=== PATIENT | female | born 1975 | race Caucasian/White ===

== ENCOUNTER 2021-06-02 02:50 | Emergency (ER) | payer BC, OTHER ==
[2021-06-02] MEDS ORDERED: SODIUM CHLORIDE 0.9% 1,000 ML IV STA (03:00)
--- NOTE | 2021-06-02 03:02 | ED ---
Abdominal Pain HPI - General Chief Complaint: Abdominal Pain Stated Complaint: Abdominal pain Time Seen by Provider: 06/02/21 02:56 Source: patient, RN notes reviewed, old records reviewed Mode of arrival: ambulatory Limitations: no limitations - History of Present Illness Initial Comments: This is a 46-year-old female to the emergency from a 2 day. Patient presents today for evaluation regards to abdominal pain. Severe abdominal pain causing nausea and nausea vomiting. Patient has history of ovarian cysts history of left lower quadrant abdominal pain history of left ovary removal. No fevers. Patient is had some constipation is taking laxatives and symptoms have worsened MD Complaint: abdominal pain -: days(s) Location: LLQ, suprapubic Radiation: L flank Migration to: suprapubic Severity: moderate Severity scale (1-10): 7 Quality: sharp Consistency: constant Improves With: nothing Worsens With: nothing Associated Symptoms: nausea, vomiting Treatments Prior to Arrival: other (none) - Related Data Home Medications Medication Instructions Recorded Confirmed Loratadine [Claritin] 10 mg PO DAILY 02/07/15 02/07/15 Previous Rx's Medication Instructions Recorded Penicillin V Potassium [Pen Vee K] 500 mg PO BID #20 tab 02/07/15 Allergies Allergy/AdvReac Type Severity Reaction Status Date / Time No Known Allergies Allergy Verified 06/02/21 02:56 Review of Systems ROS Statement: Those systems with pertinent positive or pertinent negative responses have been documented in the HPI. ROS Other: All systems not noted in ROS Statement are negative. Past Medical History Past Medical History: No Reported History Additional Past Medical History / Comment(s): ovarian cysts History of Any Multi-Drug Resistant Organisms: None Reported Past Surgical History: Adenoidectomy, Tonsillectomy Additional Past Surgical History / Comment(s): ovarian cyst removal Past Psychological History: No Psychological Hx Reported Smoking Status: Current every day smoker Past Alcohol Use History: None Reported Past Drug Use History: None Reported General Exam General appearance: alert, in no apparent distress Head exam: Present: atraumatic, normocephalic, normal inspection Eye exam: Present: normal appearance, PERRL, EOMI. Absent: scleral icterus, conjunctival injection, periorbital swelling ENT exam: Present: normal exam, mucous membranes moist Neck exam: Present: normal inspection. Absent: tenderness, meningismus, lymphadenopathy Respiratory exam: Present: normal lung sounds bilaterally. Absent: respiratory distress, wheezes, rales, rhonchi, stridor Cardiovascular Exam: Present: regular rate, normal rhythm, normal heart sounds. Absent: systolic murmur, diastolic murmur, rubs, gallop, clicks GI/Abdominal exam: Present: distended, tenderness, guarding, normal bowel sounds. Absent: rebound, rigid Extremities exam: Present: normal inspection, full ROM, normal capillary refill. Absent: tenderness, pedal edema, joint swelling, calf tenderness Back exam: Present: normal inspection Neurological exam: Present: alert, oriented X3, CN II-XII intact Psychiatric exam: Present: normal affect, normal mood Skin exam: Present: warm, dry, intact, normal color. Absent: rash Course Vital Signs 06/02/21 06/02/21 02:53 04:50 Temperature 97.7 F Pulse Rate 76 57 L Respiratory 19 16 Rate Blood Pressure 161/88 146/80 O2 Sat by Pulse 98 99 Oximetry - Reevaluation(s) Reevaluation #1: 06/02/21 03:27 Medical record is reviewed Reevaluation #2: 06/02/21 05:36 Patient is difficult to control pain but is currently controlled Reevaluation #3: 06/02/21 05:36 Spoke with patient and family regarding results, questions are answered Family very concerned about discharge home in pain, will attempt multiple pain control modalities Reevaluation #4: 06/02/21 05:37 Patient symptoms are improved Medical Decision Making - Medical Decision Making 46-year-old female to the emergency department today, patient presents today for evaluation regards to severe sudden onset of abdominal pain. With significant 10 x 13 left sided complex ovarian cyst. Patient's pain is controlled now, patient was in intractable pain originally and thought was to transfer to [facility], [facility] under her OB Dr. Regi Bee, I did speak with her colleague who recommended against transfer at this time to trial outpatient pain control. Patient agrees - Lab Data Result diagrams: 06/02/21 03:23 06/02/21 03:23 Lab Results 06/02/21 06/02/21 06/02/21 Range/Units 03:23 03:23 03:23 WBC 11.4 H (3.8-10.6) k/uL RBC 4.72 (3.80-5.40) m/uL Hgb 15.1 (11.4-16.0) gm/dL Hct 43.0 (34.0-46.0) % MCV 91.2 (80.0-100.0) fL MCH 32.0 (25.0-35.0) pg MCHC 35.1 (31.0-37.0) g/dL RDW 12.7 (11.5-15.5) % Plt Count 242 (150-450) k/uL MPV 7.9 Neutrophils % 84 % Lymphocytes % 10 % Monocytes % 3 % Eosinophils % 1 % Basophils % 0 % Neutrophils # 9.6 H (1.3-7.7) k/uL Lymphocytes # 1.1 (1.0-4.8) k/uL Monocytes # 0.4 (0-1.0) k/uL Eosinophils # 0.1 (0-0.7) k/uL Basophils # 0.0 (0-0.2) k/uL Sodium 134 L (137-145) mmol/L Potassium 4.8 (3.5-5.1) mmol/L Chloride 104 (98-107) mmol/L Carbon Dioxide 20 L (22-30) mmol/L Anion Gap 10 mmol/L BUN 17 (7-17) mg/dL Creatinine 0.63 (0.52-1.04) mg/dL Est GFR (CKD-EPI)AfAm >90 (>60 ml/min/1.73 sqM) Est GFR (CKD-EPI)NonAf >90 (>60 ml/min/1.73 sqM) Glucose 131 H (74-99) mg/dL Plasma Lactic Acid Prakash 1.6 (0.7-2.0) mmol/L Calcium 9.8 (8.4-10.2) mg/dL Total Bilirubin 1.1 (0.2-1.3) mg/dL AST 43 H (14-36) U/L ALT 21 (4-34) U/L Alkaline Phosphatase 76 (38-126) U/L Total Protein 7.4 (6.3-8.2) g/dL Albumin 4.5 (3.5-5.0) g/dL Amylase 48 (30-110) U/L Lipase 76 (23-300) U/L Urine Color Urine Appearance (Clear) Urine pH (5.0-8.0) Ur Specific [place] (1.001-1.035) Urine Protein (Negative) Urine Glucose (UA) (Negative) Urine Ketones (Negative) Urine Blood (Negative) Urine Nitrite (Negative) Urine Bilirubin (Negative) Urine Urobilinogen (<2.0) mg/dL Ur Leukocyte Esterase (Negative) Urine RBC (0-5) /hpf Urine WBC (0-5) /hpf Ur Squamous Epith Cells (0-4) /hpf Urine Bacteria (None) /hpf Urine Mucus (None) /hpf 06/02/21 Range/Units 04:33 WBC (3.8-10.6) k/uL RBC (3.80-5.40) m/uL Hgb (11.4-16.0) gm/dL Hct (34.0-46.0) % MCV (80.0-100.0) fL MCH (25.0-35.0) pg MCHC (31.0-37.0) g/dL RDW (11.5-15.5) % Plt Count (150-450) k/uL MPV Neutrophils % % Lymphocytes % % Monocytes % % Eosinophils % % Basophils % % Neutrophils # (1.3-7.7) k/uL Lymphocytes # (1.0-4.8) k/uL Monocytes # (0-1.0) k/uL Eosinophils # (0-0.7) k/uL Basophils # (0-0.2) k/uL Sodium (137-145) mmol/L Potassium (3.5-5.1) mmol/L Chloride (98-107) mmol/L Carbon Dioxide (22-30) mmol/L Anion Gap mmol/L BUN (7-17) mg/dL Creatinine (0.52-1.04) mg/dL Est GFR (CKD-EPI)AfAm (>60 ml/min/1.73 sqM) Est GFR (CKD-EPI)NonAf (>60 ml/min/1.73 sqM) Glucose (74-99) mg/dL Plasma Lactic Acid Prakash (0.7-2.0) mmol/L Calcium (8.4-10.2) mg/dL Total Bilirubin (0.2-1.3) mg/dL AST (14-36) U/L ALT (4-34) U/L Alkaline Phosphatase (38-126) U/L Total Protein (6.3-8.2) g/dL Albumin (3.5-5.0) g/dL Amylase (30-110) U/L Lipase (23-300) U/L Urine Color Light Yellow Urine Appearance Clear (Clear) Urine pH 7.5 (5.0-8.0) Ur Specific [place] 1.028 (1.001-1.035) Urine Protein Negative (Negative) Urine Glucose (UA) Negative (Negative) Urine Ketones Negative (Negative) Urine Blood Trace H (Negative) Urine Nitrite Negative (Negative) Urine Bilirubin Negative (Negative) Urine Urobilinogen <2.0 (<2.0) mg/dL Ur Leukocyte Esterase Negative (Negative) Urine RBC 2 (0-5) /hpf Urine WBC <1 (0-5) /hpf Ur Squamous Epith Cells <1 (0-4) /hpf Urine Bacteria Rare H (None) /hpf Urine Mucus Rare H (None) /hpf - Radiology Data Radiology results: report reviewed (CT head and pelvis does show significantly large complex left ovarian cyst), image reviewed Disposition Clinical Impression: Abdominal pain, Complex cyst of left ovary Disposition: HOME SELF-CARE Condition: Good Instructions (If sedation given, give patient instructions): Abdominal Pain (ED), Ovarian Cyst (ED) Is patient prescribed a controlled substance at d/c from ED?: No Referrals: Dionte Clark MD [Primary Care Provider] - 1-2 days
[2021-06-02] MEDS ORDERED: ONDANSETRON 4 MG/2 ML VIAL IVP STA (03:25)
[2021-06-02] MEDS ORDERED: MORPHINE SULFATE 4 MG/ML SYRINGE IVP STA (03:25)
[2021-06-02 03:35] LABS: Basophils % (A) 0 %; Eosinophils # (A) 0.1 k/uL (0-0.7); Eosinophils % (A) 1 %; HGB 15.1 gm/dL (11.4-16.0); Lymphocytes # (A) 1.1 k/uL (1.0-4.8); Lymphocytes % (A) 10 %; MCHC 35.1 g/dL (31.0-37.0); MCV 91.2 fL (80.0-100.0); Mean Platelet Volume 7.9; Monocytes # (A) 0.4 k/uL (0-1.0); Monocytes % (A) 3 %; Neutrophils # (A) 9.6 k/uL (1.3-7.7); Neutrophils % (A) 84 %; Platelet Count 242 k/uL (150-450); RBC 4.72 m/uL (3.80-5.40); RDW 12.7 % (11.5-15.5); WBC 11.4 k/uL (3.8-10.6)
[2021-06-02 03:51] LABS: ALT 21 U/L (4-34); African American GFR (CKD) >90 (>60 ml/min/1.73 sqM); Amylase 48 U/L (30-110); Anion Gap 10 mmol/L; Blood Urea Nitrogen 17 mg/dL (7-17); Calcium 9.8 mg/dL (8.4-10.2); Carbon Dioxide 20 mmol/L (22-30); Chloride 104 mmol/L (98-107); Glucose 131 mg/dL (74-99); Lipase 76 U/L (23-300); Non-African American GFR(CKD) >90 (>60 ml/min/1.73 sqM); Sodium 134 mmol/L (137-145)
[2021-06-02 04:02] LABS: Potassium 4.8 mmol/L (3.5-5.1)
[2021-06-02 04:03] LABS: AST 43 U/L (14-36); Albumin 4.5 g/dL (3.5-5.0); Alkaline Phosphatase 76 U/L (38-126); Total Bilirubin 1.1 mg/dL (0.2-1.3); Total Protein 7.4 g/dL (6.3-8.2)
--- NOTE | 2021-06-02 04:34 | CT ---
EXAMINATION TYPE: CT abdomen pelvis w con DATE OF EXAM: 06/02/2021 COMPARISON: None HISTORY: pain CT DLP: 1997.6 mGycm Automated exposure control for dose reduction was used. CONTRAST: Performed with IV Contrast, patient injected with 100 mL of Isovue 300. Lung bases are clear. There is no pleural effusion. Heart size is normal. There is no pericardial eff usion. Liver and spleen appear intact. There is 1.7 cm cyst near the kaelyn hepatis of the liver. Gall bladder appears normal. Stomach is intact. There is no pancreatic mass. The bile ducts are not dilate d. There is no adrenal mass. There is 3.8 cm cortical cyst upper pole left kidney. There is left-sided h ydronephrosis and hydroureter. There is a mixed density cystic mass in the pelvis on the left side wh ich is displacing the uterus to the right side. This is probably a large cyst arising from the left o vary. The mass measures 13 x 10 cm with some internal higher attenuation in the dependent portion zeinab t could be hemorrhage. Left ureter is probably obstructed due to extrinsic pressure from the cystic m ass. There is mild cystic enlargement of the endometrial cavity that measures 1.8 cm in thickness. It is difficult to separate the large cystic mass from the fundus of the uterus. The appendix appears normal. There is no mesenteric edema. There is no ascites or free air. There is no evidence of a bowel obstruction. There is no evidence of constipation. There is small amount of fl uid in the pelvis which has mixed attenuation. The lumbar vertebra have normal alignment. Posterior elements are intact. There is no compression fra cture. Bony pelvis is intact. Hip joints are intact. Sacroiliac joints are intact. There is 2 cm umbilical hernia that contains fat. 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 Follow-up yuliana mmended. Left-sided hydronephrosis and hydroureter probably due to extrinsic compression by the mass. There is some minimal free fluid in the pelvis. Abnormal uterus.
[2021-06-02] MEDS ORDERED: HYDROmorphone 1 MG/ML 1 ML SYRINGE IVP STA (04:40)
[2021-06-02 04:46] LABS: Appearance,Urine Clear (Clear); Bacteria,Urine Rare /hpf; Bilirubin,Urine Negative (Negative); Blood,Urine Trace (Negative); Color,Urine Light Yellow; Glucose,Urine (UA) Negative (Negative); Ketones,Urine Negative (Negative); Leukocyte Esterase,Urine Negative (Negative); Mucus,Urine Rare /hpf; Nitrite,Urine Negative (Negative); PH, Urine 7.5 (5.0-8.0); Protein,Urine Negative (Negative); RBC,Urine 2 /hpf (0-5); Specific Gravity,Urine 1.028 (1.001-1.035); Squamous Epithelial Cell,Urine <1 /hpf (0-4); Urobilinogen,Urine <2.0 mg/dL (<2.0); WBC,Urine <1 /hpf (0-5)
[2021-06-02] MEDS ORDERED: ONDANSETRON 4 MG ODT STARTER PACK 2 TAB BTL PO STA (05:39)
[2021-06-02] MEDS ORDERED: traMADol 50 MG STARTER PACK 3 TAB BTL PO STA (05:39)
[2021-06-02] MEDS ORDERED: ACET/COD 300 MG/30 MG STARTER PACK 6 TAB BTL PO STA (05:39)
[2021-06-02 06:41] VITALS: BP 123/74; PULSE 70; RESP 18; TEMP 98
== END 2021-06-02 06:54 | disposition home or self-care (01) ==
LOC: EC 02:50
DX: N83.292 Other ovarian cyst, left side (principal); F17.200 Nicotine dependence, unspecified, uncomplicated; Z90.721 Acquired absence of ovaries, unilateral
CPT/HCPCS: 36415; 80053; 82150; 83605; 83690; 85025; 81001; 74177; 99284; 96374; 96375; 96361; J2270; J2405; J1170; S0119; Q9967

== ENCOUNTER 2023-06-10 17:38 | Emergency (ER) | payer BC ==
[2023-06-10 17:53] VITALS: BP 153/88; PULSE 81; RESP 18; TEMP 97.8
--- NOTE | 2023-06-10 20:27 | ED ---
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 She states that this weekend was started both on amlodipine 10 mg and Keflex for hypertension and asymptomatic UTI. States yesterday, started to develop itchy rash on her bilateral lower shins. Since then reports rash has moved up her leg onto her thigh. Has had improvement of itchiness with atum-lkx-[id number] antihistamines however notes that it is still bothering her despite taking this medication. Denies fever. Denies chest pain shortness of breath. No other complaints. - Related Data Home Medications Medication Instructions Recorded Confirmed Loratadine [Claritin] 10 mg PO DAILY 02/07/15 02/07/15 Previous Rx's Medication Instructions Recorded Penicillin V Potassium [Pen Vee K] 500 mg PO BID #20 tab 02/07/15 HYDROcodone/APAP 10-325MG [Osyka 1 tab PO Q8HR PRN #15 tab 06/02/21 10-325] Prochlorperazine [Compazine] 10 mg PO Q8H PRN #15 tab 06/02/21 Hydrocortisone Cream 1 applic TOPICAL TID #28 gm 06/10/23 [Hydrocortisone 2.5% Cream] Sulfamethox-Tmp 800-160Mg [Bactrim 1 each PO Q12HR 7 Days #14 tab 06/10/23 Ds] hydroCHLOROthiazide 25 mg PO DAILY #30 tablet 06/10/23 Allergies Allergy/AdvReac Type Severity Reaction Status Date / Time No Known Allergies Allergy Verified 06/10/23 17:53 Review of Systems ROS Statement: Those systems with pertinent positive or pertinent negative responses have been documented in the HPI. ROS Other: All systems not noted in ROS Statement are negative. Past Medical History Past Medical History: No Reported History, Cancer Additional Past Medical History / Comment(s): ovarian cysts History of Any Multi-Drug Resistant Organisms: None Reported Past Surgical History: Adenoidectomy, Tonsillectomy Additional Past Surgical History / Comment(s): ovarian cyst removal Past Psychological History: No Psychological Hx Reported Smoking Status: Never smoker Past Alcohol Use History: Occasional Past Drug Use History: None Reported General Exam Limitations: no limitations General appearance: alert, in no apparent distress Eye exam: Present: normal appearance Neck exam: Present: normal inspection Respiratory exam: Present: normal lung sounds bilaterally Cardiovascular Exam: Present: regular rate, normal rhythm GI/Abdominal exam: Present: soft Neurological exam: Present: alert, oriented X3 Skin exam: Present: warm, dry, other (Papular rash on bilateral anterior aspect of lower legs. Blanches with pressure. No significant warmth or tenderness to palpation. ) Course Vital Signs 06/10/23 17:49 Temperature 97.8 F Pulse Rate 81 Respiratory 18 Rate Blood Pressure 153/88 O2 Sat by Pulse 99 Oximetry Medical Decision Making - Medical Decision Making Was pt. sent in by a medical professional or institution ([facility], CASE OPERATOR, urgent care, hospital, or correction...) When possible be specific @ -No Did you speak to anyone other than the patient for history (EMS, parent, family, police, friend...)? What history was obtained from this source @ -No Did you review nursing and triage notes (agree or disagree)? Why? @ -I reviewed and agree with nursing and triage notes Were old charts reviewed (outside hosp., previous admission, EMS record, old EKG, old radiological studies, urgent care reports/EKG's, correction records)? Report findings @ -No old charts were reviewed Differential Diagnosis (chest pain, altered mental status, abdominal pain women, abdominal pain men, vaginal bleeding, weakness, fever, dyspnea, syncope, headache, dizziness, GI bleed, back pain, seizure, CVA, palpatations, mental health, musculoskeletal)? @ -Differential Musculoskeletal Muscular strain, contusion, ligament sprain, fracture, arthritis, septic arthritis, bursitis, cellulitis, muscle spasm, nerve compression, DVT, arterial occlusion, herpes zoster, electrolyte abnormality, tumor.... This is not meant to be in all inclusive list EKG interpreted by me (3pts min.). @ -None X-rays interpreted by me (1pt min.). @ -None done CT interpreted by me (1pt min.). @ -None done U/S interpreted by me (1pt. min.). @ -None done What testing was considered but not performed or refused? (CT, X-rays, U/S, labs)? Why? @ -None What meds were considered but not given or refused? Why? @ -None Did you discuss the management of the patient with other professionals (professionals i.e. , PA, CASE OPERATOR, lab, RT, psych nurse, social science teacher, passenger elevator operator, teacher, helicopter officer, outpatient case manager)? Give summary @ -No Was smoking cessation discussed for >3mins.? @ -No Was critical care preformed (if so, how long)? @ -No Were there social determinants of health that impacted care today? How? (Homelessness, low income, unemployed, alcoholism, drug addiction, transportation, low edu. Level, literacy, decrease access to med. care, senior care, rehab)? @ -No Was there de-escalation of care discussed even if they declined (Discuss DNR or withdrawal of care, Hospice)? DNR status @ -No What co-morbidities impacted this encounter? (DM, HTN, Smoking, COPD, CAD, Cancer, CVA, ARF, Chemo, Hep., AIDS, mental health diagnosis, sleep apnea, morbid obesity)? @ -Hypertension Was patient admitted / discharged? Hospital course, mention meds given and route, prescriptions, significant lab abnormalities, going to OR and other pertinent info. @ -Discharge 48-year-old female presenting to the ED with a chief complaint of drug reaction. States since taking both of these drugs have developed an itchy rash on her bilateral lower shins now spreading up to her thighs. She advised to discontinue amlodipine and Keflex. Change patient's prescriptions to hydroc hlorothiazide and Bactrim as patient states that she has taken Bactrim in the past without any difficulties. Patient strongly advised to call PCPs office and follow up with him as soon as possible due to this. Discharged home in stable condition. Discussed return precautions with patient who verbalizes agreement. Undiagnosed new problem with uncertain prognosis? @ -No Drug Therapy requiring intensive monitoring for toxicity (Heparin, Nitro, Insulin, Cardizem)? @ -No Were any procedures done? @ -No Diagnosis/symptom? @ -Drug reaction Acute, or Chronic, or Acute on Chronic? @ -Acute Uncomplicated (without systemic symptoms) or Complicated (systemic symptoms)? @ -Uncomplicated Side effects of treatment? @ -No Exacerbation, Progression, or Severe Exacerbation? @ -No Poses a threat to life or bodily function? How? (Chest pain, [place], [place], pneumonia, PE, COPD, DKA, ARF, appy, cholecystitis, CVA, Diverticulitis, Homicidal, Suicidal, threat to staff... and all critical care pts) @ -No Disposition Clinical Impression: Drug reaction Disposition: HOME SELF-CARE Condition: Good Additional Instructions: Please return to the Emergency Department if symptoms worsen or any other concerns. Please follow up with PCP. Prescriptions: Sulfamethox-Tmp 800-160Mg [Bactrim Ds] 1 each PO Q12HR 7 Days #14 tab hydroCHLOROthiazide 25 mg PO DAILY #30 tablet Hydrocortisone Cream [Hydrocortisone 2.5% Cream] 1 applic TOPICAL TID #28 gm Is patient prescribed a controlled substance at d/c from ED?: No Referrals: Dionte Clark MD [Primary Care Provider] - 1-2 days Time of Disposition: 20:31
== END 2023-06-10 21:02 | disposition home or self-care (01) ==
LOC: EC 17:38
DX: R21 Rash and other nonspecific skin eruption (principal); T46.1X5A Adverse effect of calcium-channel blockers, initial encounter; T36.1X5A Adverse effect of cephalosporins and other beta-lactam antibiotics, initial encounter
CPT/HCPCS: 99283